=== PATIENT | female | born 1970 | race Caucasian/White ===

== ENCOUNTER → 2017-05-18 | Outpatient (CLI) | payer BC ==
[2015-08-30 00:15] VITALS: BP 145/73
[~2017-05-18] MED LIST: DILT180C29 PO; LISI10TA2 PO
== END | disposition home or self-care (01) ==
LOC: KCIC MAMMO 08:50
PROVIDERS: ATTEND Family Medicine
DX: Z12.31 Encounter for screening mammogram for malignant neoplasm of breast (principal)
CPT/HCPCS: G0202; 77067

== ENCOUNTER → 2017-06-01 | Outpatient (CLI) | payer BC ==
[2015-08-30 00:15] VITALS: BP 145/73
--- NOTE | 2017-06-01 13:22 | KCIC ---
Bilateral breast ultrasound: Reason for examination: Nodular densities on screening mammogram. Comparison is made to mammographic exam dated 05/18/2017. Bilateral whole breast ultrasound including evaluation of all 4 quadrants and the retroareolar and axillary regions of both breasts was performed. The right breast shows multiple small anechoic and hypoechoic lesions consistent with cystic and fibrocystic lesions. These all appear to be subcentimeter in size. No suspicious-appearing lesions are seen. No abnormal appearing lymph nodes are seen in the right axilla. The left breast shows multiple small subcentimeter cystic and fibrocystic type lesions and some ductal ectasia. No suspicious nodules are seen. No abnormal appearing lymph nodes are seen in the left axilla. IMPRESSION: Benign-appearing cystic and fibrocystic type lesions bilaterally. No suspicious lesions are seen. Recommend reevaluation with ultrasound in 6 months. BI-RADS Category 3: Probably Benign. "Our facility is accredited by the [employer]amm[employer]." This patient's information has been entered into a reminder system for the patient to be notified with the results of her examination and a target date for the next mammogram. Electronically signed by: Miracle Cedeno MD (06/01/2017 1:19 PM) [id number]
== END | disposition home or self-care (01) ==
LOC: KCIC US 08:45
PROVIDERS: ATTEND Family Medicine
DX: R92.8 Other abnormal and inconclusive findings on diagnostic imaging of breast (principal)
CPT/HCPCS: 76641